=== PATIENT | male | born 1950 | race Hispanic/Latino ===

== ENCOUNTER 2019-03-26 21:50 | Emergency (ER) | payer OTHER ==
[2019-03-26] MEDS ORDERED: NA CHLORIDE 0.9% 1,000 ML ONE (22:49)
[2019-03-26 22:58] LABS: Absolute Lymphocytes (CBC) 0.9 K/uL (0.7-4.9); Absolute Monocytes 1.1 K/uL (0.1-1.3); Absolute Neutrophil 15.1 K/uL (1.8-8.0); Basophils % 0.2 % (0-1.3); Eosinophils % 0.2 % (0-4.4); Hematocrit 41.7 % (39.6-49.0); Lymphocytes % 5.5 % (15.3-44.8); MPV 9.3 fL (7.6-11.3); Monocytes % 6.3 % (3.3-12.3); RBC Red Blood Cell Count 4.43 M/uL (4.33-5.43)
[2019-03-26 23:15] LABS: Potassium 4.2 mmol/L (3.5-5.1)
[2019-03-27 00:36] LABS: Blood Morphology Comment NOT SEEN (NOT SEEN); Platelet Estimate ADEQ
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
[2019-03-27] MEDS ORDERED: MORPHINE 4 MG/ML SYR ONE ×2 (01:23→02:44)
[2019-03-27] MEDS ORDERED: ONDANSETRON 4 MG/2 ML VIAL ONE (01:23)
[2019-03-27] MEDS ORDERED: NA CHLORIDE 0.9% 1,000 ML ONE (01:51)
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
== END 2019-03-27 02:47 | disposition short-term general hospital (02) ==
LOC: ER 21:50
DX: S42.112A Displaced fracture of body of scapula, left shoulder, initial encounter for closed fracture (principal); S42.002A Fracture of unspecified part of left clavicle, initial encounter for closed fracture; S22.42XA Multiple fractures of ribs, left side, initial encounter for closed fracture; S27.2XXA Traumatic hemopneumothorax, initial encounter; V28.0XXA Motorcycle driver injured in noncollision transport accident in nontraffic accident, initial encounter; I10 Essential (primary) hypertension; E11.9 Type 2 diabetes mellitus without complications
CPT/HCPCS: 96361; 85025; 80048; 36415; 80320; 86900; 86850; 86901; 70450; 72125; 71260; 74177; 96375; 96374; 99285; Q9967; J7030 ×2; J2405